=== PATIENT | female | born 1970 | race Caucasian/White ===

== ENCOUNTER → 2016-12-21 | Outpatient (CLI) | payer BC ==
[~2016-12-21] MED LIST: CEPHALEXIN500 M1 PO; LOPRESSOR 225 MG/TAB; RECLIPSEN 0.151 TAB; ROBAXIN 50500 MG/TAB; ULTRAM 50MG TAB50 MG PO; ZOFRAN8 MG PO
== END ==
LOC: MC.RAD 13:20
DX: Z12.31 Encounter for screening mammogram for malignant neoplasm of breast (principal)

== ENCOUNTER → 2018-01-21 | Outpatient (CLI) | payer BC | LOC: MC.RAD 08:40 | DX: Z12.31 Encounter for screening mammogram for malignant neoplasm of breast (principal) ==

== ENCOUNTER → 2019-02-17 | Outpatient (CLI) | payer BC | LOC: MC.RAD 09:00 | DX: Z12.31 Encounter for screening mammogram for malignant neoplasm of breast (principal) ==

== ENCOUNTER 2019-10-30 09:56 | Day surgery (SDC) | payer BC ==
[~2019-10-30] VITALS: Ht 170.2 cm; Wt 89.9 kg
[2019-10-30 10:59] VITALS: BP 135/77; PULSE 86; TEMP 97.8
[2019-10-30 12:17] VITALS: BP 119/77; PULSE 63; TEMP 97.1
--- NOTE | 2019-10-30 12:17 | NUR ---
Pt to [facility] via cart from [place]. Pt drowsy, but awakens easily with verbal stimuli. Pt denies pain, but c/o numbness to hands bilateraly. Movement to hands bilateraly. Radial pulses +2 bilateraly. Acewrap/splint and sling in place to right upper extremity and is clean, dry, and intact. Pt c/o being cold. Bear hugger placed on pt. RT arm elevated with pillows. VSS. Water and soda given per pt request. Will continue to monitor. Call light within reach. Side rails up x2.
[2019-10-30 12:30] VITALS: BP 163/79; PULSE 65
--- NOTE | 2019-10-30 12:30 | NUR ---
Pt continues to rest. Denies needs. Tolerating po fluids without difficulties. Call light within reach.
[2019-10-30 12:45] VITALS: BP 112/83; PULSE 71
--- NOTE | 2019-10-30 12:45 | NUR ---
Pt sitting up. Pudding given per request. Will continue to monitor. Call light within reach.
[2019-10-30] MEDS ORDERED: PHENERGAN 25 TA25 MG PO (12:48)
[2019-10-30] MEDS ORDERED: NORCO 325 MG-7.1 TAB PO (12:49)
[2019-10-30] MEDS ORDERED: ULTRAM 50MG TAB50 MG PO (12:49)
[2019-10-30] MEDS ORDERED: CEPHALEXIN500 M1 PO (12:49)
[2019-10-30 13:00] VITALS: BP 110/80; PULSE 67
--- NOTE | 2019-10-30 13:00 | NUR ---
Discharge instructions reviewed. Pt voices understanding. IV site discontinued with all parts intact. Pt up to dress. Call light within reach.
--- NOTE | 2019-10-30 13:15 | NUR ---
Pt escorted to private car via wheel chair. Pt accompanied home by her daughter.
== END 2019-10-30 13:20 | disposition home or self-care (01) ==
LOC: SDCO 09:56
DX: G56.03 Carpal tunnel syndrome, bilateral upper limbs (principal); E34.51 Complete androgen insensitivity syndrome; M77.11 Lateral epicondylitis, right elbow; Z82.62 Family history of osteoporosis; M19.90 Unspecified osteoarthritis, unspecified site; Z90.710 Acquired absence of both cervix and uterus; F17.210 Nicotine dependence, cigarettes, uncomplicated
CPT/HCPCS: J0690; J2704; J3301; J7120

== ENCOUNTER → 2020-02-24 | Outpatient (CLI) | payer BC ==
[~2020-02-24] MED LIST changes: +NORCO 325 MG-7.1 TAB PO; +PHENERGAN 25 TA25 MG PO
== END ==
LOC: MC.RAD 16:29
DX: Z12.31 Encounter for screening mammogram for malignant neoplasm of breast (principal)

== ENCOUNTER 2020-06-22 13:50 | Outpatient (RCR) | payer BC ==
[2020-06-30] MEDS ORDERED: VITAMINC1000TA PO (05:56)
[2020-06-30] MEDS ORDERED: FERROUSGLUC256MG PO (05:56)
[2020-06-30] MEDS ORDERED: FOLIC ACID 11 MG/TA1 PO (05:57)
[2020-07-01] MEDS ORDERED: ASPIRIN 32325 MG/TA1 PO (06:41)
[2020-07-01] MEDS ORDERED: CELEBREX 200MG200 MG PO (06:41)
[2020-07-01] MEDS ORDERED: NORCO 325 MG-7.1 TAB PO (06:42)
[2020-07-01] MEDS ORDERED: ULTRAM 50MG TAB50 MG PO (06:42)
== END 2020-09-20 | disposition home or self-care (01) ==
LOC: WSPT
DX: Z01.812 Encounter for preprocedural laboratory examination (principal); Z96.651 Presence of right artificial knee joint

== ENCOUNTER 2020-06-30 05:18 | Inpatient (IN) | payer BC ==
[2020-06-30] VITALS (10 sets, daily range): BP systolic 93–116; BP diastolic 63–79; PULSE 51–91; TEMP 97.3–98.8
[~2020-06-30] VITALS: Ht 170.2 cm; Wt 92.1 kg
[2020-06-30] MEDS ORDERED: VITAMINC1000TA PO (05:56)
[2020-06-30] MEDS ORDERED: FERROUSGLUC256MG PO (05:56)
[2020-06-30] MEDS ORDERED: FOLIC ACID 11 MG/TA1 PO (05:57)
--- NOTE | 2020-06-30 09:30 | NUR ---
PATIENT IS ORIENTED X2 BUT DISPLAYING SOME CONFUSION POST OP. PATIENT SITTING STRAIGHT UP IN BED AND WANTING TO LEAN FAR OVER, GRABBING HER FEEL AND "STRETCHING". PATIENT EDUCATED MULTIPLE TIME TO NOT LEAN FORWARD AND TO TRY AND LAY BACK. NOTED B/P IN 90'S SYSTOLIC AND C/O DIZZINESS WITH SITTING UP. PATIENT STILL WONT LAY BACK. DAUGHTER AT [place]. BED ALART ON. PATIENT DENIES PAIN IN RLE. NOTED FEELING/SENSATION AT T11-T12. PATIENT IS STILL VERY NUMB TO BLE AND MAYBE PART OF THE PROBLEM WITH WANTING TO LEAN FORWARD. RIGHT KNEE DRESSING IS CD&I WITH BULKY ACEWRAP DRESSING PLACE. PATIENT REFUSING ICE PACK AT THIS TIME. TEDS TO LLE. SCD'S TO BLE. PATIENT C/O SL NAUSEA, NO EMEMSIS. EMESIS BASIN AT BEDSIDE. IV FLUIDS INFUSING VIA PUMP INTO RIGHT HAND IV. WATER AT BEDSIDE. PATIENT OFFERED CRACKERS & 7UP, WHICH SHE DOESN'T WANT YET. PATIENT WAS ALSO GIVEN LEFT WRIST & RIGHT ELBOW INJ IN OR. PATIENT REPORTS THESE SITES ARE NUMB. BOLDEN TO DD. HEAD TO TOE ASSESSMENT COMPLETE. NO OTHER NEEDS AT THIS TIME. CALL LIGHT IN REACH.
--- NOTE | 2020-06-30 11:15 | NUR ---
PATIENT SLEEPING SOUNDLY ON HER SIDE WITH PILLOW BETWEEN HER KNEES. VSS. DAUGHTER AT BEDSIDE.
--- NOTE | 2020-06-30 13:05 | NUR ---
First visit from the gore seamer. No needs right now.
--- NOTE | 2020-06-30 13:24 | NUR ---
OK met with the patient and her daughter, Lalita (ph#[phone]), to discuss discharge plan. The patient lives alone in [place]. She reports independence with ADLs and has a walker and crutches. The patient's PCP is Dr. Brooks Moss and she receives her medications at [facility]. She reports no difficulties obtaining her meds. The patient does not have a DPOA-HC and she was not interested in completing a DPOA-HC at this time. The patient states that she is not and that she has two adult children: Lalita and Shahnaz. The patient plans to return home and recieve outpatient PT at [facility] upon discharge. No additional needs at this time.
--- NOTE | 2020-06-30 15:45 | NUR ---
PATIENT RESTING QUIETLY WITH LIGHTS TURNED DOWN. NO NEEDS. DAUGHTER STILL AT BEDSIDE.
--- NOTE | 2020-06-30 19:30 | NUR ---
Pt. sitting up in bed. Pt. is A&OX3, assessment complete. INT to rt. hand patent. Pt. reported pain at a 4 on pain scale at this time. Discussed pain management with pt. at this time. Pt. would like pain medication prior to bed and would like to keep pain medication on board through the night. This nurse voices understanding of pt. wishes. Dressing to rt. knee CDI. Geller catheter to DD, clear yellow urine noted. Pt. denies further needs. Call light within reach.
[2020-07-01 00:23] VITALS: BP 94/51; PULSE 72; TEMP 98.2
[2020-07-01] MEDS ORDERED: ASPIRIN 32325 MG/TA1 PO (06:41)
[2020-07-01] MEDS ORDERED: CELEBREX 200MG200 MG PO (06:41)
[2020-07-01] MEDS ORDERED: NORCO 325 MG-7.1 TAB PO (06:42)
[2020-07-01] MEDS ORDERED: ULTRAM 50MG TAB50 MG PO (06:42)
[2020-07-01 07:20] VITALS: BP 116/71; PULSE 75; TEMP 98.7
[2020-07-01 07:20] LABS: HEMOGLOBIN 11.9 g/dl (12.5-16.0)
[2020-07-01 07:24] LABS: HEMATOCRIT 35.1 % (37.0-47.0)
--- NOTE | 2020-07-01 08:37 | NUR ---
PT UP TO BR WITH SBA X1. VOIDED RETURNED TO RECLINER AGAIN WITH SBA. DRESSING CHANGED BY DR. GROVE. PAIN WELL CONTROLLED WITH PO MEDS AT THIS TIME. PLAN ON DISCHARGE LATER THIS PM. DRESSING TO RIGHT KNEE CDI WITH NO DRAINAGE NOTED.
[2020-07-01 12:50] VITALS: BP 110/64; PULSE 80; TEMP 98.1
--- NOTE | 2020-07-01 15:12 | NUR ---
DISCHARGE INSTRUCTIONS REVIEWED WITH PT AND FAMILY. QUESTIONS ANSWERED. PT LEFT IN WHEEL CHAIR TO FRONT WITH STAFF.
== END 2020-07-01 14:45 | disposition home or self-care (01) | DRG 470 ==
LOC: JCC 05:18 → SDCO 05:18 → JCC 06:26 → SDCO 06:26 → JCC 06:26 → JCCO 07:30 → SURG 07:30 → EDSTATUS 07:30 → SDCO 07:30 → JCC 07-01 14:45
PROVIDERS: ADMIT Orthopaedic Surgery
PROC: 0SRC06A Replacement of Right Knee Joint with Oxidized Zirconium on Polyethylene Synthetic Substitute, Uncemented, Open Approach (ICD-10-PCS; principal; 2020-06-30 07:30)
DX: M17.11 Unilateral primary osteoarthritis, right knee (principal); M77.11 Lateral epicondylitis, right elbow; G56.02 Carpal tunnel syndrome, left upper limb
CPT/HCPCS: A4314; A9284; C1776; J0690; J1885; J2250; J2405; J2704; J2795; J3010; J3301; J7120; J7121

== ENCOUNTER 2020-07-02 21:46 | Observation (INO) | payer BC ==
[~2020-07-02] VITALS: Ht 172.7 cm; Wt 101.4 kg
[~2020-07-02 21:46] MED LIST changes: +ASPIRIN 32325 MG/TA1 PO; +CELEBREX 200MG200 MG PO; +FERROUSGLUC256MG PO; +FOLIC ACID 11 MG/TA1 PO; +VITAMINC1000TA PO
[2020-07-02 22:22] LABS: BASO % 0.2 % (0.0-2.0); GRAN # 15.2 (1.4-6.5); GRAN % 79.6 % (42.2-75.2); HEMOGLOBIN 11.8 g/dl (12.5-16.0); LYMPH # 2.2 (1.2-3.4); LYMPH % 11.7 % (20.0-51.0); MEAN CELL VOLUME 87 fl (80.0-100.0); MEAN CORPUSCULAR HEMOGLOBIN 30 pg (27.0-31.0); MEAN CORPUSCULAR HGB CONC 34 g/dl (33.0-37.0); MEAN PLATELET VOLUME 9.8 fl (7.4-10.4); MONO # 1.4 (0.1-0.6); MONO % 7.2 % (1.7-9.3); PLATELET COUNT 282 K/mm3 (130-400); REDCELL DISTRIBUTION WIDTH-CV 13.2 % (11.5-14.5)
[2020-07-02 22:29] LABS: BILIRUBIN,TOTAL 0.5 mg/dL (0.0-1.0); CALCIUM 9.3 mg/dL (8.4-10.2); CREATININE, serum 0.75 (0.52-1.25); TOTAL PROTEIN 6.8 gm/dL (6.4-8.2)
[2020-07-02 22:30] LABS: HEMATOCRIT 34.9 % (37.0-47.0)
[2020-07-02 23:11] LABS: COLLECTION METHOD CLEAN CATCH
[2020-07-02 23:16] LABS: MUCOUS Present /lpf; PH 7 (5-8); SQUAMOUS EPITHELIAL 0-2 /hpf; URINE APPEARANCE Hazy; URINE BACTERIA Rare /hpf; URINE BILIRUBIN Negative (NEGATIVE); URINE BLOOD Negative (NEGATIVE); URINE COLOR Yellow; URINE GLUCOSE Negative (NEGATIVE); URINE KETONE Negative (NEGATIVE); URINE LEUKOCYTE ESTERASE Negative (NEGATIVE); URINE NITRATE Negative (NEGATIVE); URINE PROTEIN(semi-quant) Negative (NEGATIVE); URINE RBC 0-2 /hpf; URINE UROBILINOGEN Negative (NEGATIVE)
[2020-07-03 03:08] VITALS: BP 140/63; PULSE 60; TEMP 97.9
--- NOTE | 2020-07-03 03:42 | NUR ---
Patient arrived to Room 330 at 0310 via wheelchair. Initial and 5 page completed. Med rec and infectious disease interventions completed. Patient states pain is tolerable at this time as ED had just given her pain medication before coming to the floor. States she has "really bad heartburn". Dr. Moulton notified and ordered TUMS. Administered to patient. IVF continue to left AC. Patient had previous right knee replacement and dressing is CDI. Utilizes walker for ambulation. Denies any further needs. Will continue to monitor.
[2020-07-03 07:12] VITALS: BP 125/76; PULSE 55; TEMP 98.4
--- NOTE | 2020-07-03 07:47 | NUR ---
Bedside shift report received from MARIA DE JESUS Collins. PT in bed resting with IVF infusing and K Pad on back for comfort, denies needs, will continue to monitor.
--- NOTE | 2020-07-03 07:50 | NUR ---
Assisted pt up to bathroom this am. Doing well, has pain at 4/10 to back and R knee. Aquacel on R knee has some drainage on distal end but otherwise looks good, no too swollen, red or warm.. IVF to LFA. Pt up to bathroom with walker and SBA. Abd is soft and non tender. Denies needs or requests for pain meds, will continue to monitor.
[2020-07-03 11:02] LABS: BASO % 0.2 % (0.0-2.0); GRAN # 9.9 (1.4-6.5); GRAN % 74.5 % (42.2-75.2); HEMOGLOBIN 10.7 g/dl (12.5-16.0); LYMPH % 14.7 % (20.0-51.0); MEAN CELL VOLUME 89 fl (80.0-100.0); MEAN CORPUSCULAR HEMOGLOBIN 29 pg (27.0-31.0); MEAN CORPUSCULAR HGB CONC 33 g/dl (33.0-37.0); MONO # 1.3 (0.1-0.6); MONO % 9.9 % (1.7-9.3); PLATELET COUNT 246 K/mm3 (130-400); RED BLOOD COUNT 3.66 M/mm3 (4.10-5.30); REDCELL DISTRIBUTION WIDTH-CV 13.4 % (11.5-14.5)
[2020-07-03 11:06] LABS: HEMATOCRIT 32.5 % (37.0-47.0)
[2020-07-03 11:52] VITALS: BP 135/74; PULSE 58; TEMP 98.5
--- NOTE | 2020-07-03 14:12 | NUR ---
Plan: To return home with supports of her daughter. Assessment: Patient reports that she will be going home with her DTR as support but stated that she already put it on file. Patient reports that her PCP is Dr. Caballero and she obtains medications from [facility]. Pateint reports that she has transport home. Courtneyn reports that she was not happy with services in and wait in ED. Patient denies having a POA. Patient declined putting in a formal complaint. Action: Educated of community services.
--- NOTE | 2020-07-03 15:26 | NUR ---
Discharge teaching completed at this time, reviewed discharge packet, f/u appointments. INT dc'd, tip intact. Pt left with all belongings, escorted out by myself, daughter to drive home, criteria met
== END 2020-07-03 15:15 | disposition home or self-care (01) ==
LOC: COL.ER 21:46 → JCC 23:54
PROVIDERS: Emergency Medicine; ADMIT Surgery
DX: M54.5 Low back pain (principal); R10.11 Right upper quadrant pain; N83.209 Unspecified ovarian cyst, unspecified side; Z96.651 Presence of right artificial knee joint; Z79.82 Long term (current) use of aspirin; Z90.710 Acquired absence of both cervix and uterus; F17.210 Nicotine dependence, cigarettes, uncomplicated
CPT/HCPCS: G0378; J1885; J2405; J2543; J3010; J7030; Q9967

== ENCOUNTER → 2020-07-08 | Outpatient (CLI) | payer BC | LOC: COL.RAD 07:00 | DX: R10.11 Right upper quadrant pain (principal) | CPT/HCPCS: A9537; J2805 ==

== ENCOUNTER 2020-09-06 05:34 | Day surgery (SDC) | payer BC ==
[~2020-09-06] VITALS: Ht 172.7 cm; Wt 92.3 kg
[2020-09-06 06:05] VITALS: BP 141/83; PULSE 81; TEMP 96.9
[2020-09-06 07:25] VITALS: BP 119/77; PULSE 82
--- NOTE | 2020-09-06 07:25 | NUR ---
Patient returns to room 8 per cart from surgery accompanied by Ferdinand PRETTY and Terrell MAYS. Patient is awake and alert. Dressing dry on the left hand. Fingers warm to touch and morales wrap dressing dry on the left hand. IV fluids infusing and site is free of redness. Taking sips of water. Denies pain or nausea.
[2020-09-06 07:40] VITALS: BP 118/88; PULSE 67
--- NOTE | 2020-09-06 07:40 | NUR ---
Resting and denies pain or nausea.
[2020-09-06 07:55] VITALS: BP 138/78; PULSE 65
--- NOTE | 2020-09-06 07:55 | NUR ---
IV to INT and assisted up to the bathroom. Returns to room and eating applesauce.
[2020-09-06 08:10] VITALS: BP 134/82; PULSE 62
--- NOTE | 2020-09-06 08:10 | NUR ---
Resting and denies pain or nausea. Talat wrap dressing clean and dry.
--- NOTE | 2020-09-06 08:20 | NUR ---
IV discontinued and site is free of redness and swelling.
--- NOTE | 2020-09-06 08:37 | NUR ---
Patient dresses self. Given dismissal instructions and voices understanding of these.
--- NOTE | 2020-09-06 08:49 | NUR ---
Discharged to home driven by mother and assisted into car with instructions in hand.
== END 2020-09-06 08:47 | disposition home or self-care (01) ==
LOC: SDCO 05:34
DX: G56.02 Carpal tunnel syndrome, left upper limb (principal); Z90.710 Acquired absence of both cervix and uterus; F17.210 Nicotine dependence, cigarettes, uncomplicated; Z79.82 Long term (current) use of aspirin; Z96.651 Presence of right artificial knee joint
CPT/HCPCS: J0690; J2704

== ENCOUNTER 2020-09-13 16:15 | Outpatient (RCR) | payer BC | END 2020-10-02 | disposition home or self-care (01) | LOC: WSPT | DX: Z96.651 Presence of right artificial knee joint (principal) ==

== ENCOUNTER 2020-10-12 14:30 | Outpatient (RCR) | payer BC | END 2020-10-17 | disposition still patient (30) | LOC: WSPT | DX: M25.562 Pain in left knee (principal) ==

== ENCOUNTER → 2021-04-10 | Outpatient (CLI) | payer BC | LOC: MC.RAD 13:28 | DX: Z12.31 Encounter for screening mammogram for malignant neoplasm of breast (principal) ==

== ENCOUNTER 2021-12-18 13:45 | Outpatient (RCR) | payer BC | END 2022-01-11 | disposition still patient (30) | LOC: PT.GENESIS | DX: M25.561 Pain in right knee (principal) ==

== ENCOUNTER 2022-05-11 08:30 | Day surgery (SDC) | payer BC ==
[~2022-05-11] VITALS: Ht 208.2 cm; Wt 94.4 kg
[2022-05-11] MEDS ORDERED: ESTRACE2 MG PO (09:00)
[2022-05-11 10:00] VITALS: BP 109/76; PULSE 74; TEMP 96.3
[2022-05-11 10:15] VITALS: BP 108/80; PULSE 70
--- NOTE | 2022-05-11 10:17 | NUR ---
1000 - PT arrives w/ RN and was assisted ambulating from cart to chair 2:1. Monitors applied; warm blanekts applied. Vitals obtained. PT denies pain and nausea. No vomiting. PT oriented to room and call owens, within reach. PT provided w/ applesauce and a diet Sprite per request. PT requested phone from bag to contact daughter, RN provided per request. 1015 - VSS. PT has had most of her applesauce and continues to drink her soda. PT continues to deny nausea and is using her phone, w/ the call owens within reach. PT expressed desire to be discharged.
[2022-05-11 10:30] VITALS: BP 110/78; PULSE 67
--- NOTE | 2022-05-11 10:34 | NUR ---
1030 - VSS. has spoken w/ PT. IV discontinued. Catheter tip intact. Pressure bandage applied. No redness or swelling noted. DC instructions and educational material reviewed with the PT who verbalized understanding and signed the related paperwork. Questions answered to PT satisfaction. PT refused RN assistance changing, however, call owens remains within reach if needed.
--- NOTE | 2022-05-11 10:40 | NUR ---
PT dismissed from endo via wheelchair to the PT entrence by Peg PRETTY. PT has DC packet and personal belongings, and was transferred into the care of family, who is present to drive private car.
[2022-05-11 16:07] VITALS: BP 131/81; PULSE 88
== END 2022-05-11 10:40 | disposition home or self-care (01) ==
LOC: SDCO 08:30
DX: Z12.11 Encounter for screening for malignant neoplasm of colon (principal); D12.4 Benign neoplasm of descending colon; K62.1 Rectal polyp; F17.210 Nicotine dependence, cigarettes, uncomplicated
CPT/HCPCS: J2704; J7030

== ENCOUNTER → 2022-06-04 | Outpatient (CLI) | payer BC ==
[~2022-06-04] MED LIST changes: +ESTRACE2 MG PO
== END ==
LOC: MC.RAD 11:30
DX: Z12.31 Encounter for screening mammogram for malignant neoplasm of breast (principal)